=== PATIENT | male | born 1990 | race Caucasian/White ===

== ENCOUNTER 2022-02-23 18:22 | Emergency (ER) | payer MEDICAID ==
[~2022-02-23] VITALS: Ht 177.8 cm; Wt 77.3 kg
--- NOTE | 2022-02-23 18:50 | NUR ---
Patient has been called to triage multiple times, has been in the bathroom each time. Patient then started yelling for help and put on bathroom call light. When nurse and tech responded patient refused to answer, security called for standby. Patient eventually stated "I just want to know why people are calling my name". Patient educated on triage process and was told that he needs to come out of the bathroom to be seen.
== END 2022-02-23 21:17 | disposition left against medical advice (07) ==
LOC: ER 18:23
DX: R21 Rash and other nonspecific skin eruption (principal); Z53.21 Procedure and treatment not carried out due to patient leaving prior to being seen by health care provider

== ENCOUNTER 2022-03-04 03:34 | Emergency (ER) | payer MEDICAID ==
[~2022-03-04] VITALS: Ht 177.8 cm; Wt 81.8 kg
[2022-03-04 03:53] VITALS: BP 141/84
== END 2022-03-04 10:04 | disposition left against medical advice (07) ==
LOC: ER 03:34
DX: M79.671 Pain in right foot (principal); M79.672 Pain in left foot; Z53.21 Procedure and treatment not carried out due to patient leaving prior to being seen by health care provider